=== PATIENT | female | born 1990 | race Caucasian/White ===

== ENCOUNTER 2020-12-23 14:26 | Emergency (ER) | payer OTHER ==
[2020-12-23 15:20] LABS: HEMOGLOBIN 11.9 gm/dl (12.3-15.3); RED BLOOD COUNT 3.76 M/UL (4.00-5.10); WHITE BLOOD COUNT 7.2 K/UL (4.5-11.0)
[2020-12-23 15:39] LABS: BUN/CREATININE RATIO 13 (0-10)
[2020-12-23] MEDS ORDERED: CEPHALEXIN500 MG PO (17:02)
[2020-12-23] MEDS ORDERED: BACTRIM DS TAB1 EACH PO (17:02)
== END 2020-12-23 17:18 | disposition admitted as inpatient to this hospital (09) ==
LOC: ER1 14:26
PROVIDERS: Emergency Medicine
DX: L02.415 Cutaneous abscess of right lower limb (principal); Z20.822 Contact with and (suspected) exposure to COVID-19
CPT/HCPCS: 10060; 71045; 73701; 80053; 80307; 81001; 82550; 82553; 83605; 83874; 84484; 84703; 85025; 86140; 87040; 87086; 93005; 99284; J7030; Q9967; U0002